=== PATIENT | female | born 1995 | race Caucasian/White ===

== ENCOUNTER 2021-08-17 18:29 | Emergency (ER) | payer MEDICAID ==
[~2021-08-17] VITALS: Ht 149.9 cm; Wt 57.6 kg
[2021-08-17 19:02] VITALS: BP 107/59
[2021-08-17] MEDS ORDERED: SODIUM CHLORIDE FLUSH 10 ML SYR IVF STA (21:07)
[2021-08-17 21:56] LABS: BASOPHILS % (AUTO) 0.4 % (0.0-2.0); EOSINOPHILS # (AUTO) 0.1 K/uL (0-0.4); EOSINOPHILS % (AUTO) 0.7 % (0.0-4.0); HEMATOCRIT 39.1 % (36-48); HEMOGLOBIN 12.9 g/dL (12.0-16.0); LYMPHOCYTES # (AUTO) 1.6 K/uL (2.5-16.5); LYMPHOCYTES % (AUTO) 19.1 % (20.5-51.1); MEAN CORPUSCULAR HEMOGLOBIN 29 pg (27-31); MEAN CORPUSCULAR HGB CONC 33 g/dL (33-37); MONOCYTES # (AUTO) 0.5 K/uL (0.8-1.0); MONOCYTES % (AUTO) 5.9 % (1.7-9.3); NEUTROPHILS # (AUTO) 6.2 K/uL (1.8-7.7); NEUTROPHILS % (AUTO) 73.9 % (42.2-75.2); PLATELET COUNT (AUTO) 219 K/uL (140-450); RED BLOOD CELL COUNT(AUTO) 4.49 MIL/uL (4.20-5.40); WHITE BLOOD COUNT (AUTO) 8.3 K/uL (4.8-10.8)
[2021-08-17 22:17] LABS: APPEARANCE,URINE CLEAR (CLEAR); BILIRUBIN,URINE NEGATIVE (NEGATIVE); BLOOD, URINE NEGATIVE (NEGATIVE); COLOR,URINE YELLOW (YELLOW); LEUKOCYTE ESTERASE ,URINE NEGATIVE (NEGATIVE); NITRITE, URINE NEGATIVE (NEGATIVE); UGLUCOSE NEGATIVE (NEGATIVE)
[2021-08-17 22:21] LABS: CARBON DIOXIDE 28.7 mmol/L (21-32); CREATININE 0.7 mg/dL (0.6-1.3); POTASSIUM 3.7 mmol/L (3.5-5.1); TOTAL BILIRUBIN 0.2 mg/dL (0.0-1.0)
--- NOTE | 2021-08-17 23:00 | NUR ---
PT C/O OF RIGHT UPPER QUADRANT PAIN X 1 WEEK AND ITCHING X 5 DAYS. PT STATES AFTER EATING SHE USUALLY FEELS UPPER ABDOMINAL PAIN. PT DENIES ANY MEDICAL HX,NK, AND NO MEDICATIONS.
--- NOTE | 2021-08-18 00:19 | NUR ---
TROPONIN TAKEN AND HANDED TO LAB
[2021-08-18 01:25] VITALS: BP 128/82
--- NOTE | 2021-08-18 01:25 | NUR ---
Patient discharged with v/s stable. Written and verbal after care instructions given and explained. Patient verbalized understanding. Ambulatory with steady gait. ARMBAND REMOVED All questions addressed prior to discharge. Advised to follow up with PMD.
== END 2021-08-18 01:25 | disposition home or self-care (01) ==
LOC: MED 18:29
DX: R07.89 Other chest pain (principal); R10.10 Upper abdominal pain, unspecified; R11.0 Nausea
CPT/HCPCS: 36415; 71045; 80053; 81003; 81025; 83690; 84484; 85025; 93005; 99285; Q0092; Q0163